=== PATIENT | male | born 1975 | race Caucasian/White ===

== ENCOUNTER 2019-10-30 04:52 | Emergency (ER) | payer OTHER ==
[~2019-10-30] VITALS: Ht 167.6 cm; Wt 165.6 kg
[2019-10-30 04:57] VITALS: Ht 167.6 cm; Wt 165.6 kg
[2019-10-30 06:47] VITALS: BP 129/64
== END 2019-10-30 06:47 | disposition home or self-care (01) ==
LOC: ED 04:52
DX: F41.9 Anxiety disorder, unspecified (principal); G47.00 Insomnia, unspecified; R03.0 Elevated blood-pressure reading, without diagnosis of hypertension; E11.9 Type 2 diabetes mellitus without complications; E78.00 Pure hypercholesterolemia, unspecified